=== PATIENT | female | born 1950 | race Caucasian/White ===

== ENCOUNTER 2024-11-06 22:15 | Emergency (ER) | payer MEDICARE ==
[~2024-11-06] VITALS: Ht 157.5 cm; Wt 69.5 kg
[2024-11-06 22:17] VITALS: TEMP 98.7
[2024-11-06 23:07] LABS: MEAN PLATELET VOLUME 7.4 FL (7.4-10.4); RED CELL DISTRIBUTION WIDTH 13.4 % (11.5-14.5)
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
[2024-11-06 23:26] LABS: CREATININE 1.54 MG/DL (0.40-0.90); TOTAL CARBON DIOXIDE 24.5 MMOL/L (24-32); eCRCL 26 ML/MIN; eGFR 33 ML/MIN
[2024-11-06] MEDS: normal saline 1000ml 1,000 ML IV ONE (23:30)
--- NOTE | 2024-11-06 23:32 | Physician Documentation ---
History of Present Illness ~ Chief Complaint: Cold, cough & congestion Stated Complaint: MULTIPLE MEDICAL COMPLAINTS Time Seen by MD: 23:24 Mode of Arrival: Ambulatory HPI Patient presents to the emergency room with cough and mild dysuria. Symptoms h as been ongoing for the past few weeks. She has been on antibiotics for urinary tract infection by walk-in clinic. She is put on two different antibiotics cefpodoxime as well as Cipro. She states she finished the medication but continues to have mild frequency. Medication Reconciliation Allergies: Coded Allergies: No Known Allergies (Unverified , 11/06/24) Review of Systems ROS All review of systems negative except as per HPI Physical Exam Vital Signs: Temperature: 98.7, Source: Oral, Heart Rate: 100, Respiratory Rate: 14, BP: 152/83, Pulse Oximetry: 96, Weight: 69.500 Oxygen Flow Rate: 0 Physical Exam General: Patient is awake, alert, oriented x4 in no acute distress Head: Normocephalic and atraumatic. Eyes: Conjunctival normal. EOMI. PERRL. ENT: Mucous membranes moist. Neck: Supple, trachea is midline. Chest: Clear to auscultation bilaterally without rales, rhonchi, or wheezes. There is no accessory muscle use or retractions. Cardiac: Heart rate 92 and regular without murmurs, gallops, or rubs. Abd: Soft, nondistended, nontender, with normoactive bowel sounds. No guarding, rebound, or rigidity. Progress Results/Orders Results/Orders Orders - LUDWIN ELIZABETH MD Chest,Single View (11/06/24 23:24) Covid19 Binax Poc Result Entry (11/06/24 23:33) Completed Orders - LUDWIN ELIZABETH MD Electrocardiogram (11/06/24 23:06) Chest,Single View (11/06/24 23:24) Procalcitonin (11/06/24 23:29) Normal Saline 1000ml (0.9% Sodium Chlori (11/06/24 23:30) Medications Received in ER Medications (Trade) Dose Ordered Sig/Jean Route PRN Reason Start Time Stop Time Status Last Admin Dose Admin Sodium Chloride 1,000 ml @ 1,000 mls/hr ONCE ONCE IV 11/06/24 23:30 11/07/24 00:29 DC 11/06/24 23:30 1,000 MLS/HR Vital Signs 11/06/24 11/06/24 22:17 23:18 Temp 98.7 Pulse 100 Resp 18 14 B/P (MAP) 152/83 Pulse Ox 96 O2 Flow Rate 0 Laboratory Tests Test 11/06/24 22:48 11/06/24 22:58 11/06/24 23:48 11/07/24 01:08 Sodium Level 138 Potassium Level 4.8 Chloride Level 102 Carbon Dioxide Level 24.5 Anion Gap 12 Blood Urea Nitrogen 23 H Creatinine 1.54 H Estimated GFR/1.73 m2 33 BUN/Creatinine Ratio 14.9 Glucose Level 123 H Calcium Level 9.6 Total Bilirubin 0.3 Aspartate Amino Transf (AST/SGOT) 18 Alanine Aminotransferase (ALT/SGPT) 27 Alkaline Phosphatase 80 Total Protein 8.2 Albumin 4.0 Globulin 4.2 Albumin/Globulin Ratio 1.0 L Lipase 44 Procalcitonin < 0.05 Chemistry Comments White Blood Count 12.3 H Red Blood Count 4.51 Hemoglobin 14.1 Hematocrit 40.8 Mean Corpuscular Volume 90.4 Mean Corpuscular Hemoglobin 31.2 H Mean Corpuscular Hemoglobin Concent 34.5 Red Cell Distribution Width 13.4 Platelet Count 386 Mean Platelet Volume 7.4 Neutrophils (%) (Auto) 60.1 Lymphocytes (%) (Auto) 30.1 Monocytes (%) (Auto) 7.2 Eosinophils (%) (Auto) 1.8 Basophils (%) (Auto) 0.8 Neutrophils # (Auto) 7.4 Lymphocytes # (Auto) 3.7 Monocytes # (Auto) 0.9 Eosinophils # (Auto) 0.2 Basophils # (Auto) 0.1 CBC Comment Urine Specimen Description Cln catch midstream Urine Color Yellow Urine Clarity Clear Urine pH 6.5 Urine Specific [place] 1.010 Urine Protein Negative Urine Glucose (UA) Negative Urine Ketones Negative Urine Occult Blood Negative Urine Nitrite Negative Urine Bilirubin Negative Urine Urobilinogen 0.2 Urine Leukocyte Esterase Negative Urine Culture Indicated Not ind Volume Urine Centrifuged 10 ml Urine Comment SARS-CoV-2 Antigen (Rapid) Negative EKG/XRAY/CT/US/VASC/MRI EKG : Additional Comment EKG interpreted by myself shows time of 2311, rate 92, sinus rhythm, normal axis, no ST changes Medical Decision Making Findings Patient presents to the emergency room with multiple systemic complaints. Differentials include but are not limited to viral syndrome, urinary tract infection, electrolyte disturbances, dehydration therefore emergent labs ordered which were reassuring. Possible viral in nature. Patient is nontoxic appearing. Departure Disposition: HOME / SELF CARE / HOMELESS Impression: Primary Impression: Viral illness Condition: Stable Discharge Instructions: Viral Illness, Adult Referrals: NO PRIMARY CARE PROVIDER (PCP) Signature Scribe Signature: No scribe Attestation: The note accurately reflects work and decisions made by me.Ludwin Elizabeth MD 11/07/24 01:36 LUDWIN ELIZABETH MD Nov 06, 2024 23:32
--- NOTE | 2024-11-06 23:45 | RADIOLOGY REPORT ---
EXAM: DI CHEST,SINGLE VIEW TECHNIQUE: Single frontal chest radiograph CLINICAL HISTORY: cough COMPARISON: None FINDINGS/IMPRESSION: The lungs are clear. There is mild prominence of the cardiomediastinal silhouette, likely accentuated by technique. No pleural effusion or pneumothorax. No acute osseous abnormality.
[2024-11-07 00:20] LABS: LEUKOCYTE ESTERASE ,URINE NEGATIVE (Neg); NITRITES, URINE NEGATIVE (Neg); OCCULT BLOOD,URINE NEGATIVE (Neg)
[2024-11-07 00:25] LABS: UA COLLECTION TYPE CLN CATCH MIDSTREAM
[2024-11-07 02:17] VITALS: BP 152/78; PULSE 75; RESP 16; O2SAT 97
== END 2024-11-07 02:22 | disposition home or self-care (01) ==
LOC: ER 22:16
DX: B34.9 Viral infection, unspecified (principal); R51.9 Headache, unspecified; Z20.822 Contact with and (suspected) exposure to COVID-19; Z79.899 Other long term (current) drug therapy
CPT/HCPCS: 36415; 71045; 80053; 81003; 83690; 84145; 85025; 87811; 93005; 96360; 99285; J7030